=== PATIENT | male | born 1990 | race Caucasian/White ===

== ENCOUNTER 2019-01-19 00:42 | Emergency (ER) | payer OTHER ==
[2019-01-19] MEDS: BACITRACIN 0.9 GM OINT TOP (04:51)
== END 2019-01-19 05:06 | disposition home or self-care (01) ==
LOC: FTE 00:42
DX: L72.9 Follicular cyst of the skin and subcutaneous tissue, unspecified (principal)
CPT/HCPCS: 10060; 76536; 99284-25

== ENCOUNTER 2019-01-20 02:11 | Emergency (ER) | payer OTHER ==
[2019-01-20] MEDS: CEFTRIAXONE 1 GM INJ IM (02:55)
[2019-01-20] MEDS: GUAIFENESIN/CODEINE 5ML CUP PO (02:55)
[2019-01-20] MEDS: IBUPROFEN 800 MG TAB PO (03:00)
== END 2019-01-20 03:23 | disposition home or self-care (01) ==
LOC: FTE 02:11
DX: J40 Bronchitis, not specified as acute or chronic (principal); F17.210 Nicotine dependence, cigarettes, uncomplicated; L03.012 Cellulitis of left finger
CPT/HCPCS: 96372; 99284-25